=== PATIENT | male | born 1965 | race Caucasian/White ===

== ENCOUNTER 2020-06-17 21:39 | Emergency (ER) | payer OTHER ==
--- NOTE | 2020-06-17 22:33 | ER Document Report ---
ED Medical Screen (RME) - General Chief Complaint: High Blood Sugar Stated Complaint: REPORTS HIGH BLOOD SUGAR Time Seen by Provider: 06/17/20 22:19 - HPI Notes: 06/17/20 22:32 55-year-old male to the emergency department with complaints of elevated blood sugar tonight. He states that he used his son's glucometer to check his blood sugar and it was 470 at home. He admits to frequent urination and polydipsia. He denies any abdominal pain, nausea, vomiting, chest pain, dizziness, passing out, vision changes, numbness and tingling, shortness of breath. He states that he was diagnosed with diabetes about 2 or 3 years ago and has been been able to control it with diet but recently he has had some life events that have put him under a lot of stress and he has not really been taking care of himself. He is visiting from [place]. I performed a brief medical screening exam on the patient determined that the patient needs further evaluation and management by main side provider. I have placed initial orders to help expedite care. - Related Data Allergies/Adverse Reactions: codeine Allergy (Verified 06/17/20 22:21) Home Medications: valsartan, olanzipine, nugentex supplements Physical Exam - Vital signs Vitals: Temp Pulse Resp BP Pulse Ox 97.8 F 75 20 128/79 H 96 06/17/20 21:45 06/17/20 21:45 06/17/20 21:45 06/17/20 21:45 06/17/20 21:45 Course - Vital Signs Vital signs: Temp Pulse Resp BP Pulse Ox 97.8 F 75 20 128/79 H 96 06/17/20 21:45 06/17/20 21:45 06/17/20 21:45 06/17/20 21:45 06/17/20 21:45
[2020-06-17 22:52] LABS: ABSOLUTE BASOPHILS # (AUTO) 0.1 10^3/uL (0.0-0.2); ABSOLUTE EOSINOPHILS # (AUTO) 0.3 10^3/uL (0.0-0.6); ABSOLUTE LYMPHOCYTES (AUTO) 2.8 10^3/uL (0.5-4.7); ABSOLUTE MONOCYTES (AUTO) 0.7 10^3/uL (0.1-1.4); ABSOLUTE NEUT (AUTO) 4.7 10^3/uL (1.7-8.2); BASOPHILS % (AUTO) 0.6 % (0-2); EOSINOPHILS % (AUTO) 3.4 % (0-6); HEMATOCRIT 46.1 % (37.9-51.0); HEMOGLOBIN 16.5 g/dL (13.5-17.0); LYMPHOCYTES % (AUTO) 33.2 % (13-45); MEAN CORPUSCULAR HEMOGLOBIN 33.2 pg (27.0-33.4); MEAN CORPUSCULAR HGB CONC 35.8 g/dL (32.0-36.0); MEAN CORPUSCULAR VOLUME 93 fl (80-97); MONOCYTES % (AUTO) 7.7 % (3-13); PLATELET COUNT 183 10^3/uL (150-450); RED BLOOD COUNT 4.98 10^6/uL (4.35-5.55); RED CELL DISTRIBUTION WIDTH 12.6 % (11.5-14.0); SEGMENTED NEUTROPHILS % (AUTO) 55.1 % (42-78); TOTAL CELLS COUNTED % (AUTO) 100 %; WHITE BLOOD COUNT 8.5 10^3/uL (4.0-10.5)
[2020-06-17 23:00] LABS: APPEARANCE,URINE CLEAR; BILIRUBIN,URINE NEGATIVE (NEGATIVE); COLOR,URINE STRAW; GLUCOSE, URINE >=500 mg/dL (NEGATIVE); KETONES,URINE NEGATIVE (NEGATIVE); LEUKOCYTE ESTERASE,URINE NEGATIVE (NEGATIVE); NITRITE,URINE NEGATIVE (NEGATIVE); PROTEIN,URINE NEGATIVE (NEGATIVE); URINE SPECIFIC GRAVITY 1.033; UROBILINOGEN,URINE NEGATIVE mg/dL (<2.0)
[2020-06-17] MEDS ORDERED: NORMAL SALINE 1000 ML 1,000 ML IV ONE (23:03)
[2020-06-17 23:06] LABS: ALBUMIN 4.5 g/dL (3.5-5.0); ALKALINE PHOSPHATASE 151 U/L (38-126); ANION GAP 9 (5-19); ASPARTATE AMINO TRANSFERASE 21 U/L (17-59); BILIRUBIN,DIRECT 0.3 mg/dL (0.0-0.4); BILIRUBIN,TOTAL 0.6 mg/dL (0.2-1.3); BLOOD UREA NITROGEN 15 mg/dL (7-20); CALCIUM 9.5 mg/dL (8.4-10.2); CARBON DIOXIDE 33 mmol/L (22-30); CHLORIDE 92 mmol/L (98-107); GLUCOSE 369 mg/dL (75-110); POTASSIUM 4.1 mmol/L (3.6-5.0); TOTAL PROTEIN 7.3 g/dL (6.3-8.2)
[2020-06-18] MEDS ORDERED: INSULIN REG, HUMAN 100 UNIT/ML 3 ML VIAL (PYX) IV ONE (02:17)
[2020-06-18 02:19] LABS: VENOUS BLOOD HCO3 31.9 mmol/L (20-32); VENOUS BLOOD PCO2 54.9 mmHg (35-63); VENOUS BLOOD PH 7.38 (7.30-7.42)
--- NOTE | 2020-06-18 02:25 | ER Document Report ---
ED General - General Chief Complaint: High Blood Sugar Stated Complaint: REPORTS HIGH BLOOD SUGAR Time Seen by Provider: 06/17/20 22:19 - HPI Notes: Patient is a 55-year-old male who presents to the emergency department for evaluation. He states that he has been feeling fatigued and weak. He has been very thirsty, urinating a lot. He states that he is here on vacation, use his son's glucometer, found his blood sugar to be over 400. He states that he was never officially told he has diabetes, but admits that at one point his blood sugar was over 300 at his son's wedding several years ago. He states he would see readings as high as 200. His nurse practitioner was aware, he states that he was never told he was officially diabetic. He did lose weight, watch his diet, and states that no other intervention has been performed. He admits that he is on vacation, did have biscuits and gravy, barbecue, as well as pancakes today, attributes that to his significantly elevated blood glucose. He denies any pain. He does state he has some numbness and burning in his feet on occasion. He did have some blurred vision earlier. - Related Data Allergies/Adverse Reactions: codeine Allergy (Verified 06/17/20 22:21) Home Medications: valsartan, olanzipine, nugentex supplements, Ativan Past Medical History - General Information source: Patient - Social History Smoking Status: Current Every Day Smoker Drug Abuse: Marijuana Family History: DM - Past Medical History Cardiac Medical History: Reports: Hx Hypertension Endocrine Medical History: Reports: Hx Diabetes Mellitus Type 2 Psychiatric Medical History: Reports: Hx Anxiety, Hx Depression Review of Systems - Review of Systems Constitutional: See HPI EENT: See HPI Cardiovascular: No symptoms reported Respiratory: No symptoms reported Gastrointestinal: No symptoms reported Genitourinary: See HPI Musculoskeletal: No symptoms reported Skin: No symptoms reported Neurological/Psychological: No symptoms reported Physical Exam - Vital signs Vitals: Temp Pulse Resp BP Pulse Ox 97.8 F 75 20 128/79 H 96 06/17/20 21:45 06/17/20 21:45 06/17/20 21:45 06/17/20 21:45 06/17/20 21:45 - Notes Notes: Vital signs reviewed, please refer to chart. Head is normocephalic, atraumatic. Pupils equal round, reactive to light. Neck is supple without meningismus. He art is regular rate and rhythm. Lungs are clear to auscultation bilaterally. Abdomen is soft, nontender, normoactive bowel sounds throughout. Extremities without cyanosis, clubbing. Posterior calves are nontender. Peripheral pulses are equal. Skin is warm and dry. Patient is awake, alert, neurological exam is nonfocal. Course - Re-evaluation Re-evalutation: 06/18/20 02:28 Patient presents emergency department for evaluation. Laboratory investigations were obtained. We did have IV established, he was given IV fluids. I will order IV insulin. He is markedly hyperglycemic, but he is not showing any signs of acidosis. He has a pseudohyponatremia. He does have a mildly elevated creatinine. The patient was notified of these findings. I explained his renal insufficiency may be secondary to fluid deficit because of his hyperglycemia, but of course it could be secondary to longstanding diabetes without appropriate glycemic control. The patient was counseled on dietary changes. I will send him with a prescription for metformin to start daily. He plans on establishing with a new primary care provider when he returns to [place]. He is to take the metformin as prescribed, return to the ED with worsening or new concerning symptoms of any sort. - Vital Signs Vital signs: Temp Pulse Resp BP Pulse Ox 97.8 F 75 20 128/79 H 96 06/17/20 21:45 06/17/20 21:45 06/17/20 21:45 06/17/20 21:45 06/17/20 21:45 - Laboratory Result Diagrams: 06/17/20 22:45 06/17/20 22:45 Laboratory results interpreted by me: 06/17/20 06/17/20 06/17/20 22:25 22:45 22:46 Sodium 134.3 L Chloride 92 L Carbon Dioxide 33 H Creatinine 1.56 H Est GFR ( Amer) 56 L Est GFR (MDRD) Non-Af 46 L Glucose 369 H POC Glucose 399 H Alkaline Phosphatase 151 H Urine Glucose (UA) >=500 H Discharge - Discharge Clinical Impression: Renal insufficiency, mild Hyperglycemia due to type 2 diabetes mellitus 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 Your kidney function showed an elevation in your creatinine. This may be secondary to dehydration, but could be secondary to uncontrolled diabetes. It is very important that you control your glucose. Take your metformin as prescribed. Follow-up with primary care. Please try to quit smoking. If you develop worsening or new concerning symptoms of any sort, return immediately to the emergency department for reevaluation. Prescriptions: Metformin HCl [Glucophage 500 mg Tablet] 500 mg PO BID #60 tablet
[2020-06-18 03:38] VITALS: BP 121/76
== END 2020-06-18 03:31 | disposition home or self-care (01) ==
LOC: ER 21:39
DX: E11.65 Type 2 diabetes mellitus with hyperglycemia (principal); N28.9 Disorder of kidney and ureter, unspecified; I10 Essential (primary) hypertension; Z88.6 Allergy status to analgesic agent
CPT/HCPCS: 99284; 96361; 96374; 36415; 82962; 85025; 80053; 81001; 82803; J1815; J7030